=== PATIENT | female | born 1955 ===

== ENCOUNTER 2018-01-06 11:50 | Emergency (ER) | payer OTHER ==
[2018-01-06 12:02] VITALS: BP 174/94; PULSE 86; RESP 18; TEMP 99.1; O2SAT 99
--- NOTE | 2018-01-06 12:23 | ED PDOC ---
HPI: Dental Pain/Injury Time Seen by Provider: 01/06/18 12:11 Chief Complaint (Nursing): Dental Pain Chief Complaint (Provider): Dental pain History Per: Patient History/Exam Limitations: no limitations Onset/Duration Of Symptoms: Days (x1) Current Symptoms Are (Timing): Still Present Additional Complaint(s): Teddy Osorio is a 62 year old female, with a past medical history of arthritis, who presents to the emergency department complaining of right upper dental pain ongoing since yesterday associated with some mild right sided facial swelling. Patient noticed symptoms were worst after she woke up this morning. She denies any fever, chills or other medical complaints. Denies history of diabetes. PMD: None provided. Past Medical History Reviewed: Historical Data, Vital Signs Vital Signs: Last Vital Signs Temp 99.1 F 01/06/18 11:59 Pulse 86 01/06/18 11:59 Resp 18 01/06/18 11:59 BP 174/94 H 01/06/18 11:59 Pulse Ox 99 01/06/18 11:59 - Medical History PMH: Arthritis Denies: Diabetes - Surgical History Surgical History: No Surg Hx - Family History Family History: States: Unknown Family Hx - Home Medications Home Medications: Ambulatory Orders Medication Instructions Recorded Clindamycin [Cleocin] 300 mg PO Q6 7 Days #28 cap 01/06/18 - Allergies Allergies/Adverse Reactions: Allergies Allergy/AdvReac Type Severity Reaction Status Date / Time No Known Allergies Allergy Verified 01/06/18 12:02 Review of Systems Constitutional: Negative for: Fever, Chills ENT: Positive for: Mouth Pain (right upper dental pain), Other (right sided facial swelling) Physical Exam - Reviewed Nursing Documentation Reviewed: Yes Vital Signs Reviewed: Yes - Physical Exam Appears: Positive for: No Acute Distress Head Exam: Positive for: ATRAUMATIC, NORMOCEPHALIC Skin: Positive for: Normal Color, Warm, Dry Eye Exam: Positive for: Normal appearance, EOMI, PERRL ENT: Positive for: Other (Poor dentition. Right upper gingival tenderness with mild swelling, no obvious fluctuance. Mild right sided facial swelling to right maxillary area. No trismus) Neck: Positive for: Painless ROM Respiratory: Negative for: Respiratory Distress Extremity: Positive for: Normal ROM (upper and lower extremities). Negative for : Deformity, Swelling Neurologic/Psych: Positive for: Alert, Oriented - ECG O2 Sat by Pulse Oximetry: 99 (RA) Pulse Ox Interpretation: Normal Medical Decision Making Medical Decision Making: Time: 12:11 Initial Impression: Dental pain Initial Plan: Patient is medically stable, and requires no further treatment in the ED at this time. Patient will be discharged home with Rx for Clindamycin. Counseling was provided and all questions were answered regarding diagnosis. Stressed to patient the importance for follow up with dentist. There is agreement to discharge plan. Advised to take Tylenol if develops fever and return if symptoms persist or worsen. Scribe Attestation: Documented by Silvestre Vera, acting as a scribe for Jasmin Arredondo PA-C Provider Scribe Attestation: All medical record entries made by the Scribe were at my direction and personally dictated by me. I have reviewed the chart and agree that the record accurately reflects my personal performance of the history, physical exam, medical decision making, and the department course for this patient. I have also personally directed, reviewed, and agree with the discharge instructions and disposition. Disposition - Clinical Impression Clinical Impression: Dental abscess - Patient ED Disposition Is Patient to be Admitted: No - Disposition Disposition: Routine/Home Disposition Time: 13:08 Condition: STABLE Prescriptions: Clindamycin [Cleocin] 300 mg PO Q6 7 Days #28 cap Instructions: Tooth Abscess (DC) Forms: [employer] ([place]rainian)
== END 2018-01-06 14:45 | disposition home or self-care (01) ==
LOC: H.ER 11:50
DX: K04.7 Periapical abscess without sinus (principal)